=== PATIENT | male | born 1975 | race Caucasian/White ===

== ENCOUNTER 2017-04-22 15:07 | Emergency (ER) | payer SELFPAY ==
[2017-04-22 15:08] VITALS: BMI 18.4
[2017-04-22 15:09] VITALS: BP 124/79; PULSE 101; RESP 18; TEMP 35.8; O2SAT 90; BMI 18.4
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
[2017-04-22 15:34] VITALS: BP 154/94; PULSE 73; O2SAT 97
[2017-04-22 15:39] LABS: Basophils % 0.2 % (0.1-2.0); Eosinophils % 0.1 % (0.1-12.0); Hematocrit 41.1 % (42.0-52.0); Hemoglobin 13.6 g/dL (14.1-18.0); Lymphocytes # 1.4 K/mm3 (0.7-4.5); Lymphocytes % 11.7 K/mm3 (10-50); Mean Corpuscular HGB Conc 33.2 g/dL (31.8-35.4); Mean Corpuscular Hemoglobin 29.3 pg (27.0-31.2); Mean Corpuscular Volume 88.2 fl (80-94); Mean Platelet Volume 7.1 fl (7.4-10.4); Monocytes # 0.5 K/mm3 (0.1-1.0); Monocytes % 4.2 % (1.7-9.3); Neutrophils % 83.7 % (37.0-80.0); Platelet Count 363 K/mm3 (142-424); Red Blood Count 4.66 M/mm3 (4.60-6.20); Red Cell Distribution Width 12.4 % (11.5-17.5); White Blood Count 11.9 K/mm3 (4.8-10.8)
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
[2017-04-22 15:51] LABS: Alanine Aminotransferase 166 U/L (12-78); Albumin Level 3.8 gm/dL (3.4-5.0); Albumin/Globulin Ratio 0.8 (1.1-1.8); Alkaline Phosphatase 148 U/L (46-116); Anion Gap 16.7 mEq/L (5-15); Aspartate Amino Transferase 88 U/L (15-37); Bilirubin,Total 0.4 mg/dL (0.2-1.0); Blood Urea Nitrogen 30 mg/dL (7-18); Calcium 9.2 mg/dL (8.5-10.1); Carbon Dioxide 26 mmol/L (21.0-32.0); Chloride 103 mmol/L (98-107); Creatinine Clearance Estimated 95 mL/min (0-300); Creatinine,Serum 0.84 mg/dL (0.70-1.30); Estimated Glomerular Filt Rate 102 ml/min (>60); GFR (African American) 123 ML/MIN (>60); Globulin 4.6 gm/dl (1.3-3.2); Glucose 118 mg/dL (74-106); Potassium 3.7 mmoL/L (3.5-5.1); Sodium 142 mmol/L (136-145); Total Protein,Serum 8.4 gm/dL (6.4-8.2)
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
[2017-04-22 15:55] LABS: Lactic Acid 1.5 mmol/L (0.4-2.0)
[2017-04-22 16:03] LABS: CKMB Relative Index 0.7 U/L (0-4.0); Creatine Kinase 332 U/L (39-308); Creatine Kinase MB 2.2 mg/ml (0.0-3.6); Troponin I < 0.02 ng/ml (0.00-0.06)
--- NOTE | 2017-04-22 16:34 | PC.NURSE ---
DR CHEN ACCEPTED PATIENT AT
[2017-04-22 17:23] VITALS: BP 131/85; PULSE 85; RESP 18; TEMP 36.8; O2SAT 98
[2017-04-22 17:45] LABS: Ethyl Alcohol 0 mg/dL (0-99)
== END 2017-04-22 17:23 | disposition short-term general hospital (02) ==
PROVIDERS: Emergency Provider Emergency Medicine; Family Provider Internal Medicine Adolescent Medicine; PCP Internal Medicine Adolescent Medicine
DX: S92.001A Unspecified fracture of right calcaneus, initial encounter for closed fracture (principal); S92.101A Unspecified fracture of right talus, initial encounter for closed fracture; S00.531A Contusion of lip, initial encounter; V87.8XXA Person injured in other specified noncollision transport accidents involving motor vehicle (traffic), initial encounter; R29.898 Other symptoms and signs involving the musculoskeletal system; F10.10 Alcohol abuse, uncomplicated; T68.XXXA Hypothermia, initial encounter; F17.210 Nicotine dependence, cigarettes, uncomplicated
CPT/HCPCS: 71045; 72170; 73590; 73630; 80053; 82550; 82553; 83605; 84484; 85025; 96365; 99282